=== PATIENT | male | born 1965 | race Caucasian/White ===

== ENCOUNTER 2023-12-19 19:20 | Emergency (ER) | payer OTHER, MEDICAID ==
[~2023-12-19] VITALS: Ht 177.8 cm; Wt 86.2 kg
[2023-12-19 19:28] VITALS: BP_SYST 116; PULSE 72; RESP 16; TEMP 98.1; O2SAT 95
[2023-12-19] MEDS: HYDROcodone/ACETAMIN 5-325 MG TAB (NORCO/ VICODIN) PO ONE (20:24)
[2023-12-19 22:46] VITALS: TEMP 98.7
== END 2023-12-19 22:18 ==
LOC: EDBD 19:20 → SED 19:20
DX: S09.90XA Unspecified injury of head, initial encounter (principal); H61.21 Impacted cerumen, right ear; I10 Essential (primary) hypertension; E11.9 Type 2 diabetes mellitus without complications; Y04.0XXA Assault by unarmed brawl or fight, initial encounter; Y93.89 Activity, other specified; Y92.89 Other specified places as the place of occurrence of the external cause; Y99.8 Other external cause status
CPT/HCPCS: 70450-TC; 99284